=== PATIENT | male | born 1945 | race Caucasian/White ===

== ENCOUNTER 2018-08-11 15:28 | Emergency (ER) | payer MEDICARE ==
--- NOTE | 2018-08-11 16:10 | CT ---
Exam: Head CT without contrast HISTORY: Altered mental status. Confusion. COMPARISON: none FINDINGS: Hemorrhage: No intraparenchymal hemorrhage or extra-axial hematoma. Brain parenchyma: Cortical caicedo-white matter differentiation is preserved. No mass effect or midline shift. Basilar cisterns are patent. Ventricular system: Ventricles and sulci are patent and symmetric. Calvarium: Intact. Sinuses and mastoid air cells: Adequate aeration. IMPRESSION: No acute intracranial process.
[2018-08-11 16:12] LABS: #Eosinphils 0.1 thou/uL (0.0-0.7); #Monocytes 0.6 thou/uL (0.11-0.59); #Neutrophils 6.2 thou/uL (1.40-6.50); %Basophils 0.5 % (0.0-1.0); %Eosinophils 1.2 % (0.0-10.0); %Monocytes 7.3 % (0.0-10.0); %Neutrophils 77.9 % (42.0-75.0); Hemoglobin 13.6 g/dL (14.0-18.0); Mean Corpuscular HGB CONC 32.5 g/dL (32.0-36.0); Mean Corpuscular Hemoglobin 30.9 pg (27.0-31.0); Mean Corpuscular Volume 95.1 fL (78.0-98.0); Mean Platelet Volume 7.3 fL (7.4-10.4); Platelet Count 234 thou/uL (130-400)
[2018-08-11 16:32] LABS: ALT (SGPT) 13 U/L (8-55); AST (SGOT) 15 U/L (5-34); Albumin 4.6 g/dL (3.4-4.8); Alkaline Phosphatase 76 U/L (40-150); Anion Gap 13 mmol/L (10-20); BUN (Urea Nitrogen) 23 mg/dL (8.4-25.7); Bilirubin, Total 0.4 mg/dL (0.2-1.2); Calc. Creatinine Clearance 0 mL/min (70-130); Carbon Dioxide 26 mmol/L (23-31); Chloride 102 mmol/L (98-107); Estimated GFR-MDRD 54; Globulin 2.9 g/dL (2.4-3.5); Glucose 94 mg/dL (83-110); Potassium 3.8 mmol/L (3.5-5.1); Protein, Total 7.5 g/dL (5.8-8.1); Sodium 137 mmol/L (136-145)
[2018-08-11 17:08] LABS: Bilirubin Negative (Negative); Blood, Urine Negative (Negative); Clarity CLEAR (Clear); Glucose, Urine (Dipstick) Negative (Negative); Leukocyte Small (Negative); Nitrite Positive (Negative); Protein, Urine (Dipstick) Negative (Neg-Trace); Specific Gravity, Urine 1.004 (1.002-1.036); Urobilinogen 0.2 mg/dL (0.2-1.0)
[2018-08-11 17:11] LABS: Bacteria/HPF 1+ HPF (None Seen); Hyaline Casts/LPF 0-3 HYALINE CAST LPF (0-3 Hyaline); Pathc Cast-AUWi Flag 0.27 (0-2.49); RBC/HPF None Seen HPF (0-3); Squamous Epithelial 0-3 HPF (0-3); WBC/HPF 0-3 HPF (0-3)
[2018-08-11 17:27] LABS: Transitional Epithelial 0-3 HPF (0-3)
== END 2018-08-11 18:16 | disposition home or self-care (01) ==
LOC: ERS 15:28
DX: N39.0 Urinary tract infection, site not specified (principal); K21.9 Gastro-esophageal reflux disease without esophagitis
CPT/HCPCS: 36415; 70450; 80053; 81003; 81015; 85025; 87077; 87086; 87186

== ENCOUNTER 2019-07-31 08:17 | Emergency (ER) | payer MEDICARE, OTHER ==
[2019-07-31 09:27] LABS: #Eosinphils 0.1 thou/uL (0.0-0.7); #Monocytes 1.2 thou/uL (0.11-0.59); #Neutrophils 12.8 thou/uL (1.40-6.50); %Basophils 0.1 % (0.0-1.0); %Eosinophils 0.5 % (0.0-10.0); %Lymphocytes 6.5 % (21.0-51.0); %Monocytes 8.2 % (0.0-10.0); %Neutrophils 84.7 % (42.0-75.0); Mean Corpuscular Hemoglobin 31.8 pg (27.0-31.0); Mean Corpuscular Volume 96.5 fL (78.0-98.0); Mean Platelet Volume 7.4 fL (7.4-10.4); Platelet Count 239 thou/uL (130-400); RBC Distribution Width 11.7 % (11.5-14.5); Red Blood Cell (RBC) Count 4.39 mill/uL (4.70-6.10); White Blood Cell (WBC) Count 15.2 thou/uL (4.8-10.8)
[2019-07-31] MEDS ORDERED: Ketorolac Tromethamine 30 MG/ML VIAL ONE (09:45)
[2019-07-31 09:46] LABS: ALT (SGPT) 11 U/L (8-55); AST (SGOT) 13 U/L (5-34); Albumin 4.1 g/dL (3.4-4.8); Alkaline Phosphatase 74 U/L (40-110); Anion Gap 11 mmol/L (10-20); BUN (Urea Nitrogen) 12 mg/dL (8.4-25.7); Bilirubin, Total 0.7 mg/dL (0.2-1.2); CK (CPK) 55 U/L (30-200); Calc. Creatinine Clearance 0 mL/min (70-130); Calcium 9.1 mg/dL (7.8-10.44); Carbon Dioxide 27 mmol/L (23-31); Chloride 101 mmol/L (98-107); Estimated GFR-MDRD 58; Globulin 2.9 g/dL (2.4-3.5); Glucose 108 mg/dL (83-110); Lipase 10 U/L (8-78); Potassium 4.1 mmol/L (3.5-5.1); Sodium 135 mmol/L (136-145)
[2019-07-31 10:03] LABS: Bacteria/HPF 1+ HPF (None Seen); Bilirubin Negative (Negative); Blood, Urine Negative (Negative); Clarity Turbid (Clear); Glucose, Urine (Dipstick) Normal (Negative); Leukocyte 250 Leu/uL (Negative); Nitrite 2+ (Negative); Protein, Urine (Dipstick) 50 mg/dL (Neg-Trace); Squamous Epithelial None Seen HPF (0-3); Urobilinogen Normal mg/dL (Less than 2)
[2019-07-31] MEDS ORDERED: cefTRIAXone\\ROCEPHIN 2 GM VIAL ONE (10:54)
--- NOTE | 2019-07-31 12:17 | CT ---
ABDOMEN AND PELVIC CT SCAN WITH IV CONTRAST: Date: 07/31/2019 HISTORY: Epigastric pain, diarrhea. Prior bladder cancer. Status post radical cystectomy. COMPARISON: 02/02/2014. FINDINGS: The lung bases show no acute process. Stable liver cysts up to 5.0 cm. Small sliding hiatal hernia. S cattered fatty changes in the pancreas, particularly the pancreatic head region. Small 0.8 cm diamete r hypodensity in the spleen, not definitively demonstrated on prior studies. Renal cysts up to 1.3 cm in a superior pole left kidney. No renal hydronephrosis or renal calculus. There are multiple fairly large ventral hernias some of which contain only fat, others contain large and small bowel loops. Th ere are several loops of small bowel in the left mid abdomen which have air fluid levels within them and could represent mild obstruction versus some focal ileus. Right-sided ostomy site. Evidence for p rior cystectomy. Colonic diverticulosis without acute diverticulitis. Fat-containing left inguinal he rnia. IMPRESSION: 1. Right-sided ostomy site secondary to prior cystectomy. No evidence for renal calculus or acute obstruction. 2. Multiple ventral hernias, several of which contain just fat and others contain large and small abdulkadir wel. 3. Several minimally dilated loops of small bowel in the left mid abdomen with air fluid levels, non specific, possibly representing mild partial obstruction versus some focal ileus. 4. Other findings as above. POS: [facility]DI
== END 2019-07-31 13:21 | disposition home or self-care (01) ==
LOC: ERS 08:17
DX: N39.0 Urinary tract infection, site not specified (principal); K21.9 Gastro-esophageal reflux disease without esophagitis
CPT/HCPCS: 74177; 80053; 81003; 81015; 82550; 83690; 84484; 85025; 87077; 87086; 87186; 93005; 96365; 96375; J0696; J1885

== ENCOUNTER 2020-04-12 13:52 | Inpatient (IN) | payer MEDICARE, OTHER ==
[2020-04-12] MEDS ORDERED: Cefepime 2 GM VIAL ONE (15:12)
--- NOTE | 2020-04-12 15:18 | RAD ---
Exam: Chest one view HISTORY:Fever. Septic patient Comparison: 04/11/2020 FINDINGS: Cardiac silhouette: Normal Aorta: Unremarkable Pulmonary vessels: Normal Costophrenic angles: Clear LUNGS: No masses or consolidation. Pneumothorax: None Osseous abnormalities: None IMPRESSION: No acute cardiopulmonary process.
[2020-04-12 15:24] LABS: Hemoglobin 12.8 g/dL (14.0-18.0); Mean Corpuscular HGB CONC 32.5 g/dL (32.0-36.0); Mean Corpuscular Hemoglobin 31.2 pg (27.0-31.0); Mean Corpuscular Volume 96.1 fL (78.0-98.0); Mean Platelet Volume 7.5 fL (7.4-10.4); Platelet Count 168 thou/uL (130-400); RBC Distribution Width 11.8 % (11.5-14.5); White Blood Cell (WBC) Count 17.1 thou/uL (4.8-10.8)
[2020-04-12 15:42] LABS: Bilirubin Negative (Negative); Blood, Urine Trace (Negative); Clarity Clear (Clear); Glucose, Urine (Dipstick) Normal (Negative); Ketone, Urine Negative (Negative); Leukocyte 250 Leu/uL (Negative); Nitrite Negative (Negative); Protein, Urine (Dipstick) 200 mg/dL (Neg-Trace); Specific Gravity, Urine 1.026 (1.002-1.036); Squamous Epithelial 0-3 HPF (0-3); pH, Urine 8.5 (5.0-9.0)
[2020-04-12 15:49] LABS: Band 44 % (5-11); MDiff Complete? YES; Monocytes 3 % (0-10); Neutrophil 51 % (42-75); Platelet Morphology Comment Appears Adequate; Polychromasia SLIGHT = 2-3 cells (100X) (0-2/hpf); Reactive Lymphocytes 2 % (0-10); Reflex for Review?? YES
[2020-04-12 15:53] LABS: ALT (SGPT) 32 U/L (8-55); AST (SGOT) 68 U/L (5-34); Albumin 3.7 g/dL (3.4-4.8); Alkaline Phosphatase 57 U/L (40-110); Anion Gap 13 mmol/L (10-20); BUN (Urea Nitrogen) 27 mg/dL (8.4-25.7); Bilirubin, Total 0.6 mg/dL (0.2-1.2); Calc. Creatinine Clearance 0 mL/min (70-130); Calcium 8.6 mg/dL (7.8-10.44); Carbon Dioxide 23 mmol/L (23-31); Chloride 102 mmol/L (98-107); Globulin 2.9 g/dL (2.4-3.5); Glucose 97 mg/dL (83-110); Potassium 3.8 mmol/L (3.5-5.1); Protein, Total 6.6 g/dL (5.8-8.1); Sodium 134 mmol/L (136-145)
[2020-04-12 15:56] LABS: Bacteria/HPF Rare-Few HPF (None Seen)
[2020-04-12] MEDS ORDERED: Acetaminophen 500 MG TAB ONE (16:19)
[2020-04-12] MEDS ORDERED: VANCOMYCIN 2 GRAM/400 ML BAG 2 GM in Premix Bag 1 BAG IVPB SCH (16:45)
[2020-04-12] MEDS ORDERED: Lactated Ringer's 1,000 ML IV SCH (18:45)
[2020-04-12] MEDS ORDERED: Acetaminophen 325 MG TAB PO PRN (18:45)
[2020-04-12] MEDS ORDERED: Ondansetron PF 4 MG/2 ML Vial IVP PRN ×2 (18:45→19:08)
[2020-04-12] MEDS ORDERED: Ondansetron ODT 4 MG TAB SL PRN (18:45)
[2020-04-12] MEDS ORDERED: Ondansetron ODT 4 MG TAB PO PRN (19:08)
[2020-04-12] MEDS ORDERED: Acetaminophen 650 MG Suppository PR PRN (19:08)
[2020-04-12 19:11] VITALS: BMI 27.0
[2020-04-12] MEDS ORDERED: Enoxaparin Sodium 40 MG/0.4 ML SYRINGE SC SCH (19:15)
--- NOTE | 2020-04-12 19:49 | PDOC.HHP ---
Hospitalist HPI History of Present Illness: ADMISSION DATE: 04/12/2020 TIME OF ASSESSMENT: 1800 PRIMARY CARE PHYSICIAN: None CHIEF COMPLAINT: Right leg pain and redness HPI: This is a 75-year-old gentleman who presents emergency department today with complaints of a fever as well as right leg redness, pain and swelling that started today. He actually first developed a fever yesterday morning with rigors which prompted him to go to the emergency department in [place]. He did not not have any pain in his leg or swelling at that time and had no other complaints except for an episode of nausea and vomiting in the morning. He had laboratory studies done that showed leukocytosis with a white cell count of 14 and bands of 12%. He was noted to have an elevated creatinine of 1.37 and a GFR 51. A urinalysis was done showing nitrites, moderate amount of blood, trace leukocyte esterase and 2+ bacteria. He tested negative for Covid and influenza. A chest x-ray was also done showing no acute findings. Given the results of the urinalysis there was concern for pyelonephritis though he underwent a CT of the chest abdomen and pelvis which showed no acute findings in the chest abdomen or pelvis. There is questionable wall thickening or flexure. The patient states he was sent home on p.o. antibiotics with Keflex. While in the emergency department he was febrile and received Tylenol for his fever. His blood pressure ranged from 10 9-1 46 systolic and his temp was as high as 103.2 at initial presentation. He had discomfort in his back which was treated with 4 mg of morphine. He received 2 L of normal saline and 600 mg of ibuprofen. ROS: The patient states that he has continued with rigors and fevers at home. As mentioned above he developed right lower extremity redness, warmth and swelling with pain. Denies any wounds or injuries. Reports having chronic swelling of the right lower extremity since undergoing bladder resection with lymph node removal in 2013. He has a urostomy in the right lower quadrant with no follow-up with urology or a primary care physician since undergoing surgery in 2013. He states he changes the urostomy bags and cleans area ostomy on his own. Not noted any hematuria but has noted darkening of his urine. Denies any abdominal pain or flank pain. Complains of discomfort in the right groin but has not noted any scrotal swelling, erythema or pain. Has not had any further episodes of nausea or vomiting. Denies any changes with his stools. No chest pain palpitations or shortness of breath. No cough or hemoptysis. All other r eview systems are negative. ED COURSE: The patient received a call from the emergency department today advising him to come in due to blood cultures done yesterday that came back positive. On arrival he was noted to have a low-grade temperature of 99. He had a repeat urinalysis done showed 20-50 leukocytes, negative for nitrates, 200 of protein, trace blood. 7+ red blood cells, 11-20 white blood cells and rare to few bacteria. BUN 27, creatinine 1.66 and GFR 40. Lactic acid was 2. White cell count is increased to 17 and bands were 44%. A chest x-ray showed no acute cardiopulmonary process. He was started on IV antibiotics with vancomycin and cefepime. He received 1 g of Tylenol for his fever and received 1 L of normal saline. Blood cultures done yesterday showed gram-positive cocci, 2 of 2 on the left hand. Blood cultures obtained from the right arm were positive for Streptococcus agalactiae Gp. B, 2 of 2. Allergies/Adverse Reactions: Allergy/AdvReac Type Severity Reaction Status Date / Time aspirin Allergy Verified 05/31/19 11: ibuprofen [From Motrin] Allergy Verified 05/31/19 11:27 Home Medications: Medication Instructions Recorded Confirmed Type Multivit-Min/FA/Lycopene/Lut Q2DAYS 02/02/14 02/02/14 History [Centrum Silver] Omeprazole [Prilosec] 20 mg PO Q2DAYS 02/02/14 02/02/14 History Past History: PAST MEDICAL HISTORY: 1. Bladder cancer 2. GERD PAST SURGICAL HISTORY: 1. Bladder and prostate resection with lymph node resection and urostomy in 2013 2. Tonsillectomy 3. Appendectomy 4. Cholecystectomy SOCIAL HISTORY: Patient lives alone and is fully independent at baseline. Denies any tobacco use. Reports drinking a couple of beers every month. Denies drug use. FAMILY HISTORY: Noncontributory Hospitalist Exam Vitals: Vital Signs (12 hours) Temp Pulse Resp BP Pulse Ox 04/12/20 18:25 98.6 F 66 18 97/54 L 95 Weight Weight 216 lb General Appearance: NAD, awake alert Eye: PERRL, anicteric sclera ENT: normocephalic atraumatic, no oropharyngeal lesions Neck: supple, symmetric, no lymphadenopathy Heart: RRR, no murmur, no gallops, no rubs, normal peripheral pulses Respiratory: CTAB, no wheezes, no rales, no ronchi, normal chest expansion Gastrointestinal: soft, non-tender, non-distended, normal bowel sounds, no guarding, no rigidity Gastrointestinal - other findings: Urostomy in RLQ, no bleeding, most but pale in color Extremities: no edema Skin: normal turgor, no lesions Skin - other findings: Rt thigh erythema/swelling with tracking down medial aspect of rt lower leg Neurological: cranial nerve grossly intact, normal sensation to touch, no weakness Musculoskeletal: normal tone, normal strength, no muscle wasting Psychiatric: normal affect, normal behavior, A&O x 3 Hospitalist Results Result Diagrams: 04/12/20 15:06 04/12/20 15:06 Lab results: Laboratory Last Values WBC 17.1 thou/uL (4.8-10.8) H 04/12/20 15:06 RBC 4.10 mill/uL (4.70-6.10) L 04/12/20 15:06 Hgb 12.8 g/dL (14.0-18.0) L 04/12/20 15:06 Hct 39.4 % (42.0-52.0) L 04/12/20 15:06 MCV 96.1 fL (78.0-98.0) 04/12/20 15:06 MCH 31.2 pg (27.0-31.0) H 04/12/20 15:06 MCHC 32.5 g/dL (32.0-36.0) 04/12/20 15:06 RDW 11.8 % (11.5-14.5) 04/12/20 15:06 Plt Count 168 thou/uL (130-400) 04/12/20 15:06 MPV 7.5 fL (7.4-10.4) 04/12/20 15:06 Neutrophils % (Manual) 51 % (42-75) 04/12/20 15:06 Band Neuts % (Manual) 44 % (5-11) H 04/12/20 15:06 Reactive Lymphs % 2 % (0-10) 04/12/20 15:06 Monocytes % (Manual) 3 % (0-10) 04/12/20 15:06 Lymphocytes # Not Reportable 04/12/20 15:06 Plt Morphology Comment Appears Adequate 04/12/20 15:06 Polychromasia SLIGHT = 2-3 cells (100X) (0-2/hpf) 04/12/20 15:06 Sodium 134 mmol/L (136-145) L 04/12/20 15:06 Potassium 3.8 mmol/L (3.5-5.1) 04/12/20 15:06 Chloride 102 mmol/L (98-107) 04/12/20 15:06 Carbon Dioxide 23 mmol/L (23-31) 04/12/20 15:06 Anion Gap 13 mmol/L (10-20) 04/12/20 15:06 BUN 27 mg/dL (8.4-25.7) H 04/12/20 15:06 Creatinine 1.66 mg/dL (0.7-1.3) H 04/12/20 15:06 Estimated GFR (MDRD) 40 04/12/20 15:06 Glucose 97 mg/dL (83-110) 04/12/20 15:06 Lactic Acid 2.0 mmol/L (0.5-2.2) 04/12/20 15:06 Calcium 8.6 mg/dL (7.8-10.44) 04/12/20 15:06 Total Bilirubin 0.6 mg/dL (0.2-1.2) 04/12/20 15:06 AST 68 U/L (5-34) H 04/12/20 15:06 ALT 32 U/L (8-55) 04/12/20 15:06 Alkaline Phosphatase 57 U/L (40-110) 04/12/20 15:06 Serum Total Protein 6.6 g/dL (5.8-8.1) 04/12/20 15:06 Albumin 3.7 g/dL (3.4-4.8) 04/12/20 15:06 Globulin 2.9 g/dL (2.4-3.5) 04/12/20 15:06 Albumin/Globulin Ratio 1.3 g/dL (1.2-2.2) 04/12/20 15:06 Urine Color Yellow (Yellow) 04/12/20 15:05 Urine Clarity Clear (Clear) 04/12/20 15:05 Urine pH 8.5 (5.0-9.0) 04/12/20 15:05 Ur Specific Dalton 1.026 (1.002-1.036) 04/12/20 15:05 Urine Protein 200 mg/dL (Neg-Trace) A 04/12/20 15:05 Urine Glucose (UA) Normal mg/dL (Negative) 04/12/20 15:05 Urine Ketones Negative mg/dL (Negative) 04/12/20 15:05 Urine Blood Trace (Negative) A 04/12/20 15:05 Urine Nitrite Negative (Negative) 04/12/20 15:05 Urine Bilirubin Negative (Negative) 04/12/20 15:05 Urine Urobilinogen 2.0 mg/dL (Less than 2) A 04/12/20 15:05 Ur Leukocyte Esterase 250 Melvi/uL (Negative) A 04/12/20 15:05 Urine RBC 7-10 HPF (0-3) A 04/12/20 15:05 Urine WBC 11-20 HPF (0-3) A 04/12/20 15:05 Ur Squamous Epith Cells 0-3 HPF (0-3) 04/12/20 15:05 Uric Acid Crystals Rare HPF (None Seen) A 04/12/20 15:05 Urine Bacteria Rare-Few HPF (None Seen) 04/12/20 15:05 Chest x-ray Status: report reviewed by wa Hospitalist H&P A/P (1) Bacteremia Code(s): R78.81 - BACTEREMIA Status: Acute (2) Cellulitis of right leg Code(s): L03.115 - CELLULITIS OF RIGHT LOWER LIMB Status: Acute (3) Bandemia Code(s): D72.825 - BANDEMIA Status: Acute (4) NIDIA (acute kidney injury) Code(s): N17.9 - ACUTE KIDNEY FAILURE, UNSPECIFIED Status: Acute (5) History of urostomy Code(s): Z98.890 - OTHER SPECIFIED POSTPROCEDURAL STATES Status: Chronic (6) History of bladder cancer Code(s): Z85.51 - PERSONAL HISTORY OF MALIGNANT NEOPLASM OF BLADDER Status: Chronic Plan: Continue IV antibiotics, pharmacy to dose ID consulted Venous doppler of RLE Monitor for worsening erythema/edema Monitor renal function IV fluids ordered Consider urology consult given long standing urostomy with no follow-up since 2013 Avoid nephrotoxic meds Repeat CBC/BMP in AM GI Prophylaxis with Famotidine DVT Prophylaxis with Lovenox COVID testing negative CODE STATUS FULL Case discussed with Dr. Singer who agrees with plan as above.
[2020-04-12] MEDS: Sodium Chloride 0.9% 1,000 ML IV SCH (20:02)
[2020-04-12] MEDS: Famotidine 20 MG TAB PO SCH (20:02)
[2020-04-12] MEDS: Acetaminophen 325 MG TAB PO PRN (20:02)
--- NOTE | 2020-04-12 21:45 | ULT ---
RIGHT LOWER EXTREMITY VENOUS DUPLEX EXAM: 04/12/20 HISTORY: Right leg pain and swelling. Real time color Doppler evaluation of the right lower extremity was performed from groin to calf. Thi s includes evaluation of common femoral, superficial and profunda femoral, saphenous, popliteal, and posterior tibial veins. This shows a patent deep venous system. There is normal compressibility and augmentation. There is no evidence of DVT. IMPRESSION: No evidence of DVT o the right lower extremity. POS: BRANDI
[2020-04-13] MEDS ORDERED: Cefepime 2 GM in Sodium Chloride 0.9% 100 ML IVPB SCH (03:00)
[2020-04-13] MEDS: Sodium Chloride 0.9% 1,000 ML IV SCH ×3 (04:23→21:38)
[2020-04-13 06:43] LABS: #Basophils 0.1 thou/uL (0.0-0.2); #Lymphocytes 0.4 thou/uL (1.20-3.40); #Monocytes 0.3 thou/uL (0.11-0.59); #Neutrophils 10.1 thou/uL (1.40-6.50); %Basophils 1.1 % (0.0-1.0); %Eosinophils 0.2 % (0.0-10.0); %Lymphocytes 3.2 % (21.0-51.0); %Neutrophils 92.5 % (42.0-75.0); Hemoglobin 11.7 g/dL (14.0-18.0); Mean Corpuscular HGB CONC 33.1 g/dL (32.0-36.0); Mean Corpuscular Hemoglobin 32.2 pg (27.0-31.0); Mean Corpuscular Volume 97.3 fL (78.0-98.0); Mean Platelet Volume 8.1 fL (7.4-10.4); Platelet Count 132 thou/uL (130-400); RBC Distribution Width 11.8 % (11.5-14.5); Red Blood Cell (RBC) Count 3.62 mill/uL (4.70-6.10)
[2020-04-13 07:19] LABS: Anion Gap 11 mmol/L (10-20); BUN (Urea Nitrogen) 20 mg/dL (8.4-25.7); Calc. Creatinine Clearance 69 mL/min (70-130); Calcium 8.5 mg/dL (7.8-10.44); Carbon Dioxide 22 mmol/L (23-31); Chloride 109 mmol/L (98-107); Glucose 104 mg/dL (83-110); Potassium 4.4 mmol/L (3.5-5.1); Sodium 138 mmol/L (136-145)
[2020-04-13] MEDS: Acetaminophen 325 MG TAB PO PRN ×2 (08:25→20:26)
[2020-04-13] MEDS: CEFAZOLIN 2 GM in Premix Bag 1 BAG IVPB SCH ×2 (15:18→21:39)
--- NOTE | 2020-04-13 15:34 | CON ---
DATE OF CONSULTATION: 04/13/2020 REASON FOR CONSULTATION: Cellulitis. HISTORY OF PRESENT ILLNESS: A 75-year-old with history of bladder cancer status post total cystectomy with ileal conduit, lymphadenectomy, and chronic lymphedema in right lower extremity, who now presents with acute onset of cellulitis in right lower extremity with fever. Initially, he was sent home [facility]. The blood cultures returned positive, so he was referred for admission. He has been started on broad-spectrum coverage. He is feeling somewhat better. No headaches, visual symptoms, sore throat, odynophagia, or dysphagia. No cough, sputum production, or chest pain. No abdominal pain or diarrhea. No genitourinary symptoms except for the ileal conduit and a prior cystectomy. Swelling of the right lower extremity with erythema and pain. MEDICAL HISTORY: 1. Bladder cancer, in remission after total cystectomy and prostatectomy. 2. Has an ileal conduit. 3. GERD. 4. Cholecystectomy history. SOCIAL HISTORY: Retired pharmacist, just recently retired. He lives in [place] in a ranch. No drug use. No smoking history. ALLERGIES: ASPIRIN AND IBUPROFEN. MEDICATIONS: 1. Cefepime. 2. Ondansetron. 3. Vancomycin. PHYSICAL EXAMINATION: VITAL SIGNS: T-max 98.9. Other vital signs are normal. Saturations are 96% on room air. SKIN: Evidence of venous insufficiency with a few small varicosities in both right and left lower extremities and erythema involving mostly the thigh on left side in the circumferential distribution. There is once very tiny little ulcer in the medial aspect of the right thigh. The erythema extends to the top 3rd of the right leg. No lymphadenopathy. HEENT: Ocular movements conjugate. Oral cavity normal. NECK: Supple. LUNGS: Symmetric. Clear breath sounds. HEART: S1 and S2. Regular rate. ABDOMEN: Soft. Ileal conduit. No ascites. EXTREMITIES: Right lower extremity is edematous, 2+. Pulses 1+ in dorsalis pedis. NEUROLOGIC: Nonfocal including cognitive function. LABORATORY STUDIES: White cell count 17 and now 11, platelets 132, 92% neutrophils, and hemoglobin 11.7. Sodium 134 and 138, creatinine was 1.6 and now 1.26. AST 68. Urinalysis with 11 to 20 wbc's. Cultures with group B strep, 2/2 sets of blood cultures. Vascular ultrasound was done yesterday and it showed no DVT. The patient had abdomen CT on the and it showed ostomy, ventral hernia, minimally dilated loops of small bowel, diverticulosis, but no diverticulitis. There is a chest x-ray, no acute cardiopulmonary process. There is a CT abdomen, chest, and pelvis from the , which was done in [place], showed no acute findings. ASSESSMENT: 1. Bladder cancer, in remission following cystectomy with ileal conduit. 2. The patient had a lymphadenectomy in right lower extremity with chronic lymphedema. 3. Cellulitis due to group B strep with bacteremia. DISCUSSION: Group B strep as opposed to Staph aureus is less likely to be associated with abscess formation and usually resolves without need for surgical intervention. Other sites of involvement are not apparent at this time, so we will switch him to cefazolin once he is improved, then transition to oral Keflex for discharge planning, treat for about 10 days to 14 days and then consider Pen VK prophylaxis 250 mg b.i.d. plus compressive stockings. Job ID: [id number]
[2020-04-13] MEDS ORDERED: VANCOMYCIN 1.75 GM/350 ML BAG 1.75 GM in Premix Bag 1 BAG IVPB SCH (17:00)
--- NOTE | 2020-04-13 18:10 | PDOC.HOSPP ---
- Subjective Encounter Date: 04/13/20 Encounter Time: 09:00 Subjective: Seen for follow-up regarding bacteremia. He reports feeling better. - Objective Vital Signs & Weight: Vital Signs (12 hours) Temp Pulse Resp BP BP Pulse Ox 04/13/20 16:21 99.4 F 63 18 110/60 96 04/13/20 11:20 98.9 F 59 L 16 114/67 96 04/13/20 08:00 95 04/13/20 07:30 98.5 F 85 16 116/67 95 Weight Weight 216 lb I&O: 04/12/20 04/13/20 04/14/20 06:59 06:59 06:59 Intake Total 1350 480 Output Total 800 Balance 550 480 Result Diagrams: 04/13/20 06:20 04/13/20 06:20 Additional Labs: I reviewed patient's labs and [facility] Hospitalist ROS - Review of Systems Cardiovascular: denies: chest pain, palpitations, orthopnea, paroxysmal noc. dyspnea, edema, light headedness Gastrointestinal: denies: nausea, vomiting, abdominal pain, diarrhea, constipation, melena, hematochezia Skin: reports: rash - Medication Medications: Active Medications Generic Name Dose Route Start Last Admin Trade Name Freq PRN Reason Stop Dose Admin Acetaminophen 650 mg 04/12/20 19:08 04/13/20 08:25 Acetaminophen 325 Mg Tab PO 650 mg Q4H PRN Administration Headache/Fever/Mild Pain (1-3) Famotidine 20 mg 04/12/20 21:00 04/12/20 20:02 Famotidine 20 Mg Tab PO 20 mg QPM KAITLYNN Administration Sodium Chloride 1,000 mls @ 100 mls/hr 04/12/20 19:15 04/13/20 06:19 Normal Saline 0.9% IV 1,000 mls .Q10H KAITLYNN Administration Cefazolin Sodium/Dextrose 2 gm 50 mls @ 100 mls/hr 04/13/20 14:00 04/13/20 15:18 / Device IVPB 50 mls Q8HR KAITLYNN Administration Sodium Chloride 10 ml 04/12/20 21:00 04/13/20 10:56 Flush - Normal Saline 10 Ml Syringe IVF Not Given Q12HR [facility] Hospitalist Exam Vitals: Vital Signs (12 hours) Temp Pulse Resp BP BP Pulse Ox 02/04/21 16:21 99.4 F 63 18 110/60 96 04/13/20 11:20 98.9 F 59 L 16 114/67 96 04/13/20 08:00 95 04/13/20 07:30 98.5 F 85 16 116/67 95 Weight Weight 216 lb General Appearance: awake alert Eye: anicteric sclera ENT: moist mucosa Neck: supple Heart: RRR Respiratory: CTAB Gastrointestinal: soft, non-tender Gastrointestinal - other findings: ileal conduit Neurological: cranial nerve grossly intact Psychiatric: normal affect, normal behavior Hosp A/P - Plan (1) Bacteremia Code(s): R78.81 - BACTEREMIA Status: Acute (2) Cellulitis of right leg Code(s): L03.115 - CELLULITIS OF RIGHT LOWER LIMB Status: Acute (3) Bandemia Code(s): D72.825 - BANDEMIA Status: Acute (4) NIDIA (acute kidney injury) Code(s): N17.9 - ACUTE KIDNEY FAILURE, UNSPECIFIED Status: resolved (5) History of urostomy Code(s): Z98.890 - OTHER SPECIFIED POSTPROCEDURAL STATES Status: Chronic (6) History of bladder cancer Code(s): Z85.51 - PERSONAL HISTORY OF MALIGNANT NEOPLASM OF BLADDER Status: Chronic Plan: Continue IV antibiotics appreciate ID service input No DVT GI Prophylaxis with Famotidine DVT Prophylaxis with Lovenox NIDIA and hyponatremia have resolved
[2020-04-13] MEDS: Enoxaparin Sodium 40 MG/0.4 ML SYRINGE SC SCH (20:24)
[2020-04-13] MEDS: Famotidine 20 MG TAB PO SCH (20:25)
[2020-04-14] MEDS: CEFAZOLIN 2 GM in Premix Bag 1 BAG IVPB SCH ×3 (05:23→22:18)
[2020-04-14] MEDS: Sodium Chloride 0.9% 1,000 ML IV SCH ×2 (08:24→18:49)
[2020-04-14] MEDS: Acetaminophen 325 MG TAB PO PRN (11:21)
--- NOTE | 2020-04-14 15:00 | PRG ---
DATE OF SERVICE: 04/14/2020 SUBJECTIVE: Feeling better, wants to go home maybe tomorrow. Still having some trouble walking, but better than before. No respiratory symptoms or abdominal pain. OBJECTIVE: VITAL SIGNS: T-max is 99.6, BP 130/70, heart rate 75, respirations 16, and O2 saturation 96. GENERAL: He appears in no distress. LUNGS: Clear. HEART: S1 and S2. Regular rate. ABDOMEN: Urostomy. EXTREMITIES: Right leg with improvement in the erythema, less swelling as well. NEUROLOGIC: Unchanged. LABORATORY DATA: White cell count is down to 11,000, hemoglobin 11, and platelets 132 with 92% neutrophils. CRP is 26.98. Creatinine is better at 1.26. Microbiology with group B strep from 04/11. MEDICATIONS: He is currently on cefazolin q.8 at 2 g. ASSESSMENT AND DISCUSSION: 1. Bladder cancer, in remission, following cystectomy with ileal conduit. 2. Lymphadenectomy with chronic lymphedema. 3. Cellulitis with group B strep, which started around the thigh, but no evidence of abscess formation, so I think that maybe tomorrow or Friday he can go home on oral Keflex 500 q.6 h. for a total 10 days, after that transition to Pen VK 250 b.i.d. for 6 to 12 months and compression stockings. Job ID: [id number]
--- NOTE | 2020-04-14 18:24 | PDOC.HOSPP ---
- Subjective Subjective: She was seen examined at bedside. Patient report that his cellulitis improving. ID is following - Objective Vital Signs & Weight: Vital Signs (12 hours) Temp Pulse Resp BP BP Pulse Ox 04/14/20 16:36 99.1 F 52 L 16 106/62 98 04/14/20 11:51 99.2 F 04/14/20 11:21 99.6 F 04/14/20 08:25 96 04/14/20 07:42 99.0 F 75 16 133/76 96 Weight Admit Weight 216 lb Weight 216 lb I&O: 04/13/20 04/14/20 04/15/20 06:59 06:59 06:59 Intake Total 1350 2980 1870 Output Total 800 1500 1100 Balance 550 1480 770 Result Diagrams: 04/13/20 06:20 04/13/20 06:20 Radiology Reviewed by me: Yes EKG Reviewed by me: Yes Hospitalist ROS - Medication Medications: Active Medications Generic Name Dose Route Start Last Admin Trade Name Freq PRN Reason Stop Dose Admin Acetaminophen 650 mg 04/12/20 19:08 04/14/20 11:21 Acetaminophen 325 Mg Tab PO 650 mg Q4H PRN Administration Headache/Fever/Mild Pain (1-3) Enoxaparin Sodium 40 mg 04/13/20 21:00 04/13/20 20:24 Enoxaparin Sodium 40 Mg/0.4 Ml Syringe SC 40 mg 2100 KAITLYNN Administration Famotidine 20 mg 04/12/20 21:00 04/13/20 20:25 Famotidine 20 Mg Tab PO 20 mg QPM KAITLYNN Administration Sodium Chloride 1,000 mls @ 100 mls/hr 04/12/20 19:15 04/14/20 08:24 Normal Saline 0.9% IV 1,000 mls .Q10H KAITLYNN Administration Cefazolin Sodium/Dextrose 2 gm 50 mls @ 100 mls/hr 04/13/20 14:00 04/14/20 13:40 / Device IVPB 50 mls Q8HR KAITLYNN Administration Sodium Chloride 10 ml 04/12/20 21:00 04/14/20 08:25 Flush - Normal Saline 10 Ml Syringe IVF 10 ml Q12HR KAITLYNN Administration Hospitalist Exam Vitals: Vital Signs (12 hours) Temp Pulse Resp BP BP Pulse Ox 04/14/20 16:36 99.1 F 52 L 16 106/62 98 04/14/20 11:51 99.2 F 04/14/20 11:21 99.6 F 04/14/20 08:25 96 04/14/20 07:42 99.0 F 75 16 133/76 96 Weight Admit Weight 216 lb Weight 216 lb General Appearance: NAD Eye: PERRL ENT: normocephalic atraumatic Neck: supple Heart: RRR Respiratory: CTAB Gastrointestinal: soft Extremities: 2+ LE edema Extremities - other findings: right leg erythema, improved from demarcated line Neurological: cranial nerve grossly intact Hosp A/P (1) Bacteremia Code(s): R78.81 - BACTEREMIA Status: Acute (2) Cellulitis of right leg Code(s): L03.115 - CELLULITIS OF RIGHT LOWER LIMB Status: Acute (3) History of bladder cancer Code(s): Z85.51 - PERSONAL HISTORY OF MALIGNANT NEOPLASM OF BLADDER Status: Chronic (4) History of urostomy Code(s): Z98.890 - OTHER SPECIFIED POSTPROCEDURAL STATES Status: Chronic - Plan The patient is a pleasant 75 years old gentleman who has significant past medical history of bladder cancer, in remission, following cystectomy with ileal conduit, chronic lymphadenopathy, who was transferred from outside [facility] for cellulitis with group B strep, and bacteremia. Group B strep bacteremia --Continue IV Ancef, repeated blood cultures no growth. Possible transition to oral antibiotic and home over the weekend --Appreciate Dr. Bashir Cellulitis of right lower extremity --Improving continue antibiotics as above Chronic lymphedema --Wound care consult, compression stocking History of bladder cancer, in remission
[2020-04-14] MEDS: Famotidine 20 MG TAB PO SCH (19:55)
[2020-04-14] MEDS: Enoxaparin Sodium 40 MG/0.4 ML SYRINGE SC SCH (19:56)
[2020-04-15] MEDS: Sodium Chloride 0.9% 1,000 ML IV SCH ×2 (04:19→09:03)
[2020-04-15] MEDS: CEFAZOLIN 2 GM in Premix Bag 1 BAG IVPB SCH ×2 (05:08→13:22)
[2020-04-15 06:25] LABS: #Basophils 0.1 thou/uL (0.0-0.2); #Eosinphils 0.1 thou/uL (0.0-0.7); #Lymphocytes 0.7 thou/uL (1.20-3.40); #Monocytes 0.6 thou/uL (0.11-0.59); #Neutrophils 6.4 thou/uL (1.40-6.50); %Basophils 1.2 % (0.0-1.0); %Eosinophils 0.8 % (0.0-10.0); %Lymphocytes 8.8 % (21.0-51.0); %Monocytes 7.4 % (0.0-10.0); %Neutrophils 81.8 % (42.0-75.0); Hemoglobin 10.4 g/dL (14.0-18.0); Mean Corpuscular HGB CONC 32.6 g/dL (32.0-36.0); Mean Corpuscular Hemoglobin 31.3 pg (27.0-31.0); Mean Corpuscular Volume 95.8 fL (78.0-98.0); Mean Platelet Volume 8.2 fL (7.4-10.4); Platelet Count 146 thou/uL (130-400); RBC Distribution Width 11.9 % (11.5-14.5); Red Blood Cell (RBC) Count 3.33 mill/uL (4.70-6.10); White Blood Cell (WBC) Count 7.9 thou/uL (4.8-10.8)
[2020-04-15 06:50] LABS: Anion Gap 12 mmol/L (10-20); BUN (Urea Nitrogen) 14 mg/dL (8.4-25.7); CRP (Inflammatory) 17.77 mg/dL (= or < 0.5); Calc. Creatinine Clearance 81 mL/min (70-130); Carbon Dioxide 22 mmol/L (23-31); Chloride 107 mmol/L (98-107); Glucose 105 mg/dL (83-110); Potassium 3.8 mmol/L (3.5-5.1); Sodium 137 mmol/L (136-145)
[2020-04-15] MEDS ORDERED: Famotidine 20 MG TAB PO SCH (09:00)
--- NOTE | 2020-04-15 14:09 | PDOC.DS.DS ---
Provider Date of Admission: 04/12/20 16:56 Admitting Provider: Krista Singer MD Primary Care Physician: Stevie Zamudio MD Course Hospital Course: 75-year-old male scented with acute onset of cellulitis in the right lower extremity with the fever. He does have a history of bladder cancer status post total cystectomy with ileal conduit chronic lymphedema in the right lower extremity Bacteremia Code(s): R78.81 - BACTEREMIA Status: Acute (2) Cellulitis of right leg Code(s): L03.115 - CELLULITIS OF RIGHT LOWER LIMB Status: Acute (3) History of bladder cancer Code(s): Z85.51 - PERSONAL HISTORY OF MALIGNANT NEOPLASM OF BLADDER Status: Chronic (4) History of urostomy Code(s): Z98.890 - OTHER SPECIFIED POSTPROCEDURAL STATES Status: Chronic - Plan The patient is a pleasant 75 years old gentleman who has significant past medical history of bladder cancer, in remission, following cystectomy with ileal conduit, chronic lymphadenopathy, who was transferred from outside facility for cellulitis with group B strep, and bacteremia. Group B strep bacteremia --Continue IV Ancef, repeated blood cultures no growth. Patient is transition to Keflex for 10 days and then Pen-Vee K for 6 months per ID recommendations. Cellulitis of right lower extremity --Improving continue antibiotics as above Chronic lymphedema --Wound care consult, compression stocking History of bladder cancer, in remission Patient is stable to be discharged home. Follow-up with infectious disease , Dr. [facility] after first course of antibiotics completed. Discharge time over 30 minutes Resuscitation Status: 04/12/20 19:08 Resuscitation Status Routine Co-Sign Provider: Resuscitation Status: FULL: Full Resuscitation Lab Results: 04/15/20 05:56 04/15/20 05:56 Abnormal Lab Results - Last 48 hrs 04/15/20 05:56: Carbon Dioxide 22 L, C-Reactive Protein 17.77 H 04/15/20 05:56: RBC 3.33 L, Hgb 10.4 L, Hct 31.9 L, MCH 31.3 H, Neutrophils % 81.8 H, Lymphocytes % 8.8 L, Basophils % 1.2 H, Lymphocytes # 0.7 L, Monocytes # 0.6 H Microbiology - Entire Visit 04/12/20 15:05 Urine clean catch Urine Culture - Final 04/12/20 15:07 Venous blood - Left Arm Blood Culture - Preliminary NO GROWTH AT 48 HOURS 04/12/20 15:06 Venous blood - Right Arm Blood Culture - Preliminary NO GROWTH AT 48 HOURS Vitals: Vital Signs (12 hours) Temp Pulse Resp BP BP Pulse Ox 04/15/20 08:00 98.2 F 54 L 18 150/72 H 97 04/15/20 04:00 98.6 F 56 L 18 115/57 L 93 L Weight Admit Weight 216 lb Weight 216 lb Physical Exam: The patient was seen and examined on the day of discharge. Patient seen his sister at bedside. He had some chills but he is comfortable going home today. Mild discomfort in the right upper thigh area and inguinal with ongoing lymphedema. General Appearance: NAD, awake alert Plan Prescriptions: Cephalexin [Keflex] 500 mg PO Q6H 10 Days #40 cap Penicillin V Potassium 250 mg PO BID 30 Days #60 tab Home Medications: Medication Instructions Recorded Confirmed Type Cephalexin [Keflex] 500 mg PO Q6H 10 Days #40 cap 04/15/20 Rx Penicillin V Potassium 250 mg PO BID 30 Days #60 tab 04/15/20 Rx Allergies: aspirin Allergy (Verified 04/13/20 02:21) Rash patient not allergic, states "does not agree with stomach" Activity:: Activity as Tolerated Nourishment:: Heart Healthy Diet Referrals: Stevie Zamudio MD [Primary Care Provider] - Disposition: HOME Quality CORE MEASURES:: N/A
[2020-04-15 14:39] VITALS: TEMP 99.1
[2020-04-15 15:08] VITALS: BP 159/69
--- NOTE | 2020-04-19 08:01 | PQF ---
CLINICAL DOCUMENTATION CLARIFICATION FORM: Dear : Adnrea Lao Date / Time: 04/19/20 08:00 Please exercise your independent, professional judgment in responding to the clarification form. Clinical indicators are provided on the bottom of this form for your review Please check appropriate box(es): Conflicting documentation was noted in the Medical Record; please clarify if patient is being treated/monitored for: [ ] Sepsis [ x ] Bacteremia only [ ] Other diagnosis, please specify: [ ] Unable to determine Physician Signature: Date/Time: For continuity of documentation, please document condition throughout progress notes and discharge summary. Thank You. To be completed by CDI/Coding staff for physician review: Present Clinical Indicators - Signs / Symptoms / Labs Results and Location in Medical Record [x] Bacteremia DS 04/15 [x] Sepsis ED Notes 04/12 [x] RLE cellulitis DS 04/15 [x] Group B strep bactremia DS 04/15 [x] Bandemia PN 04/13 [x] NIDIA PN 04/13 [x] Temp=98.6 Pulse=66 Respi=20 BP=97/54 VS 04/12 [x] WBC: 04/12=17.1 04/13=11.0 Laboratory 04/12 [x] Lactic Acid: 04/12=2.0 Laboratory 04/12 [x] blood culture: no growth Laboratory 04/12 Present Risk Factors Results and Location in Medical Record [x] 75 years old male DS 04/15 [x] RLE cellulitis DS 04/15 Present Treatments Results and Location in Medical Record [x] Cefepime 2gm IV MAY 09 [x] IVF MAY 09 [x] Cefazolin 2gm IV MAY 09 [x] Vancomycin 1.75gm IV MAY 09 [x] ID consult Consult 04/12 CDS/Director [employer] Signature: Dat Meehanariel Pereira Phone #: [phone] Date/Time: 04/19/20 This is a permanent part of the Medical Record [facility]
--- NOTE | 2020-04-19 08:03 | PQF ---
CLINICAL DOCUMENTATION CLARIFICATION FORM: Dear : Andrea Lao Date / Time: 04/19/20 08 :03 Please exercise your independent, professional judgment in responding to the clarification form. Clinical indicators are provided on the bottom of this form for your review Please check appropriate box(s): [ ] Hypovolemic Shock [ ] Septic Shock [x ] Shock Unspecified [ x ] Other diagnosis, please specify _due to bacteremia [ ] Unable to determine In addition, please specify: Present on Admission (POA): [ ] Yes [ ] No [ ] Unable to determine Physician Signature: Date/Time: For continuity of documentation, please document condition throughout progress notes and discharge summary. Thank You. To be completed by CDI/Coding staff for physician review: Present Clinical Indicators - Signs / Symptoms / Labs Results and Location in Medical Record [x] Bacteremia DS 04/15 [x] Sepsis ED Notes 04/12 [x] Group B strep bactremia DS 04/15 [x] Bandemia PN 04/13 [x] Temp=98.6 Pulse=66 Respi=20 VS 04/12 [x] Lactic Acid: 04/12=2.0 Laboratory 04/12 [x] BP 04/12=97/54 0245=965/59 04/1559=953/57 VS 04/12 Present Risk Factors Results and Location in Medical Record [x] 75 years old male DS 04/15 [x] RLE cellulitis DS 04/15 [x] NIDIA PN 04/13 Present Treatments Results and Location in Medical Record [x] Cefepime 2gm IV MAY 09 [x] IVF MAY 09 [x] Cefazolin 2gm IV MAY 09 [x] Vancomycin 1.75gm IV MAY 09 [x] ID consult Consult 04/12 CDS/Coffee Brewer Signature: Dat Colbert Kelli Phone #: [phone] Date/Time: 04/19/20 This is a permanent part of the Medical Record [facility]
== END 2020-04-15 15:38 | disposition home or self-care (01) | DRG 602 ==
LOC: ERS 13:52 → T4-B 16:56
PROVIDERS: ADMIT Internal Medicine; ATTEND Internal Medicine
DX: L03.115 Cellulitis of right lower limb (principal); R57.8 Other shock; N17.9 Acute kidney failure, unspecified; R78.81 Bacteremia; C67.9 Malignant neoplasm of bladder, unspecified; K21.9 Gastro-esophageal reflux disease without esophagitis; Z90.49 Acquired absence of other specified parts of digestive tract; Z88.5 Allergy status to narcotic agent; Z88.8 Allergy status to other drugs, medicaments and biological substances
CPT/HCPCS: 36415; 71045; 80048; 80053; 81003; 81015; 83605; 85025; 85060; 85379; 86140; 87040; 87086; 96365; 96367; J0690; J0692; J1650; J3370; J3490

== ENCOUNTER 2020-12-13 11:07 | Outpatient (CLI) | payer MEDICARE, OTHER ==
[2020-12-13 11:53] LABS: #Basophils 0.1 10x3/uL (0.0-0.2); #Eosinphils 0.1 10x3/uL (0.0-0.5); #Monocytes 0.8 10x3/uL (0.0-1.1); #Neutrophils 4.7 10x3/uL (1.5-8.4); %Basophils 0.9 % (0.0-2.0); %Eosinophils 1.6 % (0.0-6.0); %Lymphocytes 23.9 % (18.0-47.0); %Monocytes 10.3 % (0.0-10.0); %Neutrophils 62.9 % (40.0-75.0); Hemoglobin 14.1 g/dL (13.5-17.5); Mean Corpuscular HGB CONC 32.8 g/dL (32.0-36.0); Mean Corpuscular Hemoglobin 30.9 pg (27.0-33.0); Mean Corpuscular Volume 94.3 fl (81.2-95.1); Mean Platelet Volume 9.6 fl (7.4-10.4); Platelet Count 243 10x3/uL (150-450); RBC Distribution Width 12.6 % (11.5-14.5); Red Blood Cell (RBC) Count 4.56 10x6/uL (4.32-5.72); White Blood Cell (WBC) Count 7.5 10x3/uL (3.5-10.5)
[2020-12-13 12:09] LABS: ALT (SGPT) 13 U/L (8-55); AST (SGOT) 17 U/L (5-34); Albumin 4.4 g/dL (3.4-4.8); Alkaline Phosphatase 69 U/L (40-110); Anion Gap 12 mmol/L (10-20); BUN (Urea Nitrogen) 16 mg/dL (8.4-25.7); Bilirubin, Total 0.6 mg/dL (0.2-1.2); Calc. Creatinine Clearance 0 mL/min (70-130); Calcium 10.2 mg/dL (7.8-10.44); Carbon Dioxide 26 mmol/L (23-31); Chloride 105 mmol/L (98-107); Globulin 2.7 g/dL (2.4-3.5); Glucose 98 mg/dL (83-110); Potassium 4.4 mmol/L (3.5-5.1); Protein, Total 7.1 g/dL (5.8-8.1); Sodium 139 mmol/L (136-145)
[2020-12-13 19:28] LABS: SARS-CoV-2 PCR by NAA Not Detected (NotDetected)
== END 2020-12-13 11:08 | disposition home or self-care (01) ==
LOC: LABBT 11:07
PROVIDERS: ATTEND Surgery
DX: Z01.818 Encounter for other preprocedural examination (principal); K43.2 Incisional hernia without obstruction or gangrene; K43.5 Parastomal hernia without obstruction or gangrene; Z20.822 Contact with and (suspected) exposure to COVID-19
CPT/HCPCS: 80053; 85025; 93005; U0003; U0005; 93010

== ENCOUNTER 2020-12-18 06:05 | Inpatient (IN) | payer MEDICARE, OTHER ==
[2020-12-15 11:34] VITALS: BMI 25.6
[2020-12-18] MEDS ORDERED: ceFAZolin 2 GM/DEX 5% 100 ML BAG ONE ×2 (06:23)
[2020-12-18] MEDS ORDERED: SUGAMMADEX SODIUM 200 MG/2 ML VIAL ONE (06:32)
[2020-12-18] MEDS ORDERED: Fentanyl 100 MCG/2 ML VIAL ONE ×2 (06:32→10:05)
[2020-12-18] MEDS ORDERED: Famotidine/PF 20 mg/2ml Vial ONE (06:33)
[2020-12-18] MEDS ORDERED: Bupivacaine 0.25% HCL 30 ML VIAL ONE (06:50)
[2020-12-18] MEDS ORDERED: XYLOCAINE 2%-EPI 1:100,000 20 ML VIAL ONE (06:50)
[2020-12-18] MEDS ORDERED: Metoclopramide HCl 10 MG/2 ML VIAL ONE (07:28)
[2020-12-18] MEDS ORDERED: Dexamethasone 20 MG/5 ML VIAL ONE (07:28)
[2020-12-18] MEDS ORDERED: Ketorolac Tromethamine 30 MG/ML VIAL ONE (07:28)
[2020-12-18] MEDS ORDERED: Ondansetron PF 4 MG/2 ML Vial ONE (07:28)
[2020-12-18] MEDS ORDERED: Lidocaine 1% PF 5 ML VIAL ONE (07:28)
[2020-12-18] MEDS ORDERED: Rocuronium Bromide 10 MG/ML (10ML VIAL) ONE (07:28)
[2020-12-18] MEDS ORDERED: PROPOFOL 200 MG/20 ML VIAL ONE (07:28)
[2020-12-18] MEDS ORDERED: Ondansetron HCl/PF 4 MG/2 ML Vial IVP PRN (09:32)
[2020-12-18] MEDS ORDERED: Promethazine HCl 25 MG/ML VIAL IM PRN ×3 (09:32→10:16)
[2020-12-18] MEDS ORDERED: Promethazine HCl 25 MG/ML VIAL IVPB PRN (09:32)
[2020-12-18] MEDS ORDERED: Ondansetron PF 4 MG/2 ML Vial IVP PRN ×2 (09:50→10:16)
[2020-12-18] MEDS ORDERED: hydrALAZINE 20 MG/ML VIAL SLOW IVP PRN (09:50)
[2020-12-18] MEDS ORDERED: diphenhydrAMINE 50 MG/ML VIAL IVP PRN (10:16)
[2020-12-18] MEDS ORDERED: Naloxone HCl 0.4 mg/ml Vial IV PRN (10:16)
[2020-12-18] MEDS ORDERED: Zolpidem Tartrate 5 MG TAB PO PRN (10:16)
[2020-12-18] MEDS ORDERED: diphenhydrAMINE 50 MG/ML VIAL IM PRN (10:16)
[2020-12-18] MEDS ORDERED: diphenhydrAMINE 25 MG CAP PO PRN (10:16)
[2020-12-18] MEDS ORDERED: fentaNYL Citrate/PF 2,000 MCG in Sodium Chloride 0.9% 60 ML IV PRN (10:16)
[2020-12-18] MEDS ORDERED: Communication Order-Pharmacy FS SCH (10:30)
[2020-12-18] MEDS: metroNIDAZOLE 500 MG in Premix Bag 1 BAG IVPB SCH ×3 (11:20→23:33)
[2020-12-18] MEDS ORDERED: metroNIDAZOLE 500 MG/100 ML BAG ONE (11:21)
[2020-12-18] MEDS ORDERED: hydrALAZINE 20 MG/ML VIAL ONE (12:04)
[2020-12-18] MEDS: Ketorolac Tromethamine 30 MG/ML VIAL IVP SCH ×2 (16:00→19:53)
[2020-12-18] MEDS ORDERED: ceFAZolin Sodium/D5W 2 GM in Premix Bag 1 BAG IVPB SCH (16:00)
[2020-12-18] MEDS: Sodium Chloride 0.9% 1,000 ML IV SCH ×2 (16:01→19:25)
[2020-12-18] MEDS: Famotidine/PF 20 mg/2ml Vial SLOW IVP SCH (19:51)
[2020-12-18] MEDS: Famotidine 20 MG TAB PO SCH (20:04)
[2020-12-19] MEDS ORDERED: CEFAZOLIN 2 GM in Premix Bag 1 BAG IVPB SCH (00:30)
[2020-12-19] MEDS: Sodium Chloride 0.9% 1,000 ML IV SCH ×2 (01:00→11:28)
[2020-12-19] MEDS: Ketorolac Tromethamine 30 MG/ML VIAL IVP SCH ×4 (03:39→15:05)
[2020-12-19 06:17] LABS: #Lymphocytes 1.4 thou/uL (1.20-3.40); #Monocytes 0.9 thou/uL (0.11-0.59); #Neutrophils 8.9 thou/uL (1.40-6.50); %Basophils 0.2 % (0.0-1.0); %Eosinophils 0.4 % (0.0-10.0); %Lymphocytes 12.6 % (21.0-51.0); %Monocytes 7.8 % (0.0-10.0); %Neutrophils 78.9 % (42.0-75.0); Hemoglobin 12.2 g/dL (14.0-18.0); Mean Corpuscular HGB CONC 33.5 g/dL (32.0-36.0); Mean Corpuscular Hemoglobin 31.9 pg (27.0-31.0); Mean Corpuscular Volume 95.1 fL (78.0-98.0); Mean Platelet Volume 7.3 fL (7.4-10.4); Platelet Count 203 thou/uL (130-400); RBC Distribution Width 11.8 % (11.5-14.5); Red Blood Cell (RBC) Count 3.84 mill/uL (4.70-6.10); White Blood Cell (WBC) Count 11.2 thou/uL (4.8-10.8)
[2020-12-19 06:36] LABS: Anion Gap 13 mmol/L (10-20); BUN (Urea Nitrogen) 16 mg/dL (8.4-25.7); Calc. Creatinine Clearance 68 mL/min (70-130); Calcium 8.6 mg/dL (7.8-10.44); Carbon Dioxide 23 mmol/L (23-31); Chloride 107 mmol/L (98-107); Glucose 97 mg/dL (83-110); Potassium 4.1 mmol/L (3.5-5.1); Sodium 139 mmol/L (136-145)
[2020-12-19] MEDS: Famotidine 20 MG TAB PO SCH (11:27)
[2020-12-19] MEDS: Famotidine/PF 20 mg/2ml Vial SLOW IVP SCH (11:27)
[2020-12-19 11:40] VITALS: BP 134/68; TEMP 98.6
[2020-12-19] MEDS ORDERED: traMADol HCl 50 MG TAB PO PRN (14:54)
[2020-12-19] MEDS ORDERED: HYDROcodone/Acetaminophen 5/325 mg Tablet PO PRN ×2 (14:56→14:57)
== END 2020-12-19 15:33 | disposition home or self-care (01) | DRG 355 ==
LOC: SDC 06:05 → SJJU 09:54
PROVIDERS: ADMIT Surgery; ATTEND Surgery
PROC: 0WUF4JZ Supplement Abdominal Wall with Synthetic Substitute, Percutaneous Endoscopic Approach (ICD-10-PCS; principal; 2020-12-18)
DX: K43.2 Incisional hernia without obstruction or gangrene (principal); K43.5 Parastomal hernia without obstruction or gangrene; Z85.51 Personal history of malignant neoplasm of bladder; Z90.49 Acquired absence of other specified parts of digestive tract; Z90.79 Acquired absence of other genital organ(s); Z98.49 Cataract extraction status, unspecified eye
CPT/HCPCS: 36415; 80048; 85025; J0360; J0690; J1100; J1885; J2405; J2704; J2765; J3010; J3490; J7050; S0020; S0028